=== PATIENT | female | born 1995 | race Caucasian/White ===

== ENCOUNTER 2024-05-22 16:37 | Outpatient (CLI) | payer BC, SELFPAY | END 2024-05-22 16:38 | disposition home or self-care (01) | LOC: NFLDREF 05-23 08:28 | PROVIDERS: Visit Provider Nurse Practitioner | DX: R30.0 Dysuria (principal); N30.00 Acute cystitis without hematuria; B37.9 Candidiasis, unspecified; T36.95XA Adverse effect of unspecified systemic antibiotic, initial encounter | CPT/HCPCS: 87086; 87186 ==

== ENCOUNTER 2024-06-20 16:18 | Emergency (ER) | payer BC, SELFPAY ==
[2024-06-20 16:28] VITALS: BP 135/93; PULSE 87; RESP 18; TEMP 35.9; O2SAT 98; BMI 33.3
--- NOTE | 2024-06-20 16:59 | ED.ANIMALBIT ---
HPI - Animal Bite General Date Seen: 06/20/24 Chief Complaint: Animal Bite Stated Complaint: Bat bite Monday Time Seen by Provider: 06/20/24 16:36 Source: patient Mode of arrival: ambulatory Limitations: no limitations History of Present Illness HPI narrative: Patient is 28-year-old female presenting for being bit by a bat. This happened a couple days ago when she caught a bat does fine in her room. It bent bit onto her finger until she was able to release at outside. She has spoke to her clinic this happened appointment for rabies vaccine was told to come to the emergency department. Denies any other symptoms. Has not noticed any redness around the bite kareen. No other concerns noted. Related Data Home Medications ?Medication ?Instructions ?Recorded ?Confirmed citalopram 10 mg tablet (Celexa) 10 mg PO QDAY 08/05/23 06/20/24 metformin 500 mg tablet 500 mg PO QDAY 08/05/23 06/20/24 levetiracetam 750 mg tablet 1,500 mg PO BID 05/22/24 06/20/24 levonorgestrel 21 mcg/24 hr (up to 1 device intrauterine ONCE 05/22/24 06/20/24 8 years) 52 mg intrauterine device (Mirena) Previous Rx's ?Medication ?Instructions ?Recorded ciprofloxacin 0.3 %-dexamethasone 4 drp otic (ear) BID 7 days #7.5 mL 06/14/24 0.1 % ear drops,suspension Allergies Allergy/AdvReac Type Severity Reaction Status Date / Time hydrocodone Allergy Verified 06/20/24 16:27 Review of Systems Narrative: Pertinent systems reviewed and were negative unless stated in HPI PFSH PFSH Social History Smoking Status: Never smoker How often do you have a drink containing alcohol: never AUDIT-C Alcohol total score: 0 Non-prescribed substance use: denies use Exam Narrative: Exam Narrative: Const: Well-nourished, Well-developed, in mild distress Eyes: PERRL, no conjunctival injection, and symmetrical lids HENT: Atraumatic external nose and ears. Moist mucous membranes. MSK:Extremities w/o deformity, Normal Active ROM Skin: Warm, Dry. Very small bite ochoa noted to distal right index finger with no surrounding erythema. Neuro: Normal Muscle tone, No focal neurological deficits. Psych: Awake, Alert, & Oriented x3. Appropriate mood and affect. Const: Vital Signs, click to edit/add: Vital Signs - 24 hr 06/20/24 16:28 Temperature 96.7 F L Pulse Rate [Pulse Oximeter] 87 Respiratory Rate 18 Blood Pressure [Ri ght Upper Arm] 135/93 H Pulse Oximetry 98 Oxygen Delivery Me thod Room Air Course Vital Signs Vital signs: Initial Vital Signs Temperature 96.7 F L 06/20/24 16:28 Temperature Source Temporal Artery Scan 06/20/24 16:28 Pulse Rate 87 06/20/24 16:28 Pulse Rhythm Regular 06/20/24 16:28 Respiratory Rate 18 06/20/24 16:28 Blood Pressure 135/93 H 06/20/24 16:28 Blood Pressure Mean 107 H 06/20/24 16:28 Blood Pressure Position Sitting 06/20/24 16:28 Pulse Oximetry 98 06/20/24 16:28 Oxygen Delivery Method Room Air 06/20/24 16:28 Vital Signs Temperature 96.7 F L 06/20/24 16:28 Pulse Rate 87 06/20/24 16:28 Respiratory Rate 18 06/20/24 16:28 Blood Pressure 135/93 H 06/20/24 16:28 Pulse Oximetry 98 06/20/24 16:28 Oxygen Delivery Method Room Air 06/20/24 16:28 Temperature 96.7 F L 06/20/24 16:28 Pulse Rate 87 06/20/24 16:28 Respiratory Rate 18 06/20/24 16:28 Blood Pressure 135/93 H 06/20/24 16:28 Pulse Oximetry 98 06/20/24 16:28 Oxygen Delivery Method Room Air 06/20/24 16:28 Medications Administered Medications: Discontinued Medications Generic Name Dose Route Start Last Admin Trade Name Freq PRN Reason Stop Dose Admin Rabies Immune Globulin 1,755 unit 06/20/24 16:45 06/20/24 17:42 Rabies Immune Globulin 150 Unit/Ml Inj 20 unit/kg (1755 unit) 06/20/24 16:46 1,755 unit INFILTRATI Administration ONCE ONE Rabies Vaccine 2.5 unit 06/20/24 16:45 06/20/24 17:41 Rabies Vaccine (Rabavert) 2.5 Unit IM 06/20/24 16:46 2.5 unit .ONCE ONE Administration MDM - Animal Bite MDM Narrative Medical decision making narrative: Patient is a 28-year-old female presenting for rabies vaccine after being bit by a bat. She has never had the vaccine before and will be given a rabies vaccine and immunoglobulin. No signs of infection around the fingers or necessary start antibiotics. Did give her return precautions if she starts developing signs of infection. She states she understands. She will be discharged and given information to follow-up for future vaccines. Discharge Plan Discharge Clinical Impression: Bite by animal Instructions: Rabies (ED) Additional Instructions: You will need to return 3, 7, 14 days for the rest of your rabies vaccination series. Also return if you start showing signs of infection to the finger that was bit. Day 3: 06/23/2024 Day 7: 06/27/2024 Day 14: 07/04/2024 Prescriptions: No Action metformin 500 mg tablet 500 mg PO QDAY citalopram [Celexa] 10 mg tablet 10 mg PO QDAY levetiracetam 750 mg tablet 1,500 mg PO BID Mirena 21 mcg/24 hr (8 yrs) 52 mg intrauterine device 1 device intrauterine ONCE Rx Instructions: as a single dose ciprofloxacin-dexamethasone 0.3-0.1 % drops,suspension 4 drp otic (ear) BID 7 Days Qty: 7.5 0RF Follow Up/Referrals: Provider,Not a Local [Primary Care Provider] - Stand Alone Forms: MyHealth Info Instructions
[2024-06-20] MEDS: RABIES VACCINE (RABAVERT) 2.5 UNIT IM (17:41)
[2024-06-20] MEDS: RABIES IMMUNE GLOBULIN 150 UNIT/ML INJ 1755 UNIT INFILTRATI (17:42)
== END 2024-06-20 17:52 | disposition home or self-care (01) ==
PROVIDERS: Emergency Provider Student in an Organized Health Care Education/Training Program
DX: Z20.3 Contact with and (suspected) exposure to rabies (principal)
CPT/HCPCS: 90399; 96372; 99282; 90675

== ENCOUNTER 2024-07-04 16:06 | Outpatient (RCR) | payer BC, SELFPAY ==
[2024-06-23 11:00] VITALS: BP 136/85; PULSE 80; RESP 16; TEMP 36.4; O2SAT 99
[2024-06-23] MEDS: RABIES VACCINE (RABAVERT) 2.5 UNIT IM (11:02)
[2024-06-27 16:42] VITALS: BP 132/83; PULSE 84; RESP 16; TEMP 36.6; O2SAT 100
[2024-06-27 16:45] VITALS: BP 132/83; PULSE 84; RESP 16; TEMP 36.6; O2SAT 100
[2024-06-27] MEDS: RABIES VACCINE (RABAVERT) 2.5 UNIT IM (16:55)
[2024-07-04 16:28] VITALS: BP 131/82; PULSE 86; RESP 16; TEMP 36.6; O2SAT 97
[2024-07-04] MEDS: RABIES VACCINE (RABAVERT) 2.5 UNIT IM (16:30)
== END 2024-07-04 16:40 | disposition home or self-care (01) ==
PROVIDERS: PCP Student in an Organized Health Care Education/Training Program; Visit Provider Student in an Organized Health Care Education/Training Program
DX: Z23 Encounter for immunization (principal); Z20.3 Contact with and (suspected) exposure to rabies
CPT/HCPCS: 80307; 90471; 90675